=== PATIENT | male | born 1985 | race Caucasian/White ===

== ENCOUNTER → 2019-07-30 | Outpatient (CLI) | payer OTHER ==
--- NOTE | 2019-07-30 11:41 | Diagnostic Imaging Report ---
PROCEDURE: CT sinuses without contrast TECHNIQUE: Multiple contiguous axial images were obtained through the sinuses without the use of intravenous contrast. Coronal and sagittal reformations were then performed. Auto Exposure Controls were utilized during the CT exam to meet ALARA standards for radiation dose reduction. INDICATION: Deviated septum. COMPARISON: None FINDINGS: Moderate leftward angulation of the anterior septum. Small black bullosa in the left middle turbinate. The paranasal sinuses are clear. The ostiomeatal units and frontal recesses are patent. Normal alignment of the temporomandibular joints. The visualized mastoids and middle ears are clear. Skull base is intact. IMPRESSION: 1. Moderate leftward angulation of the anterior nasal septum. 2. No evidence of acute or chronic sinusitis. Dictated by: Dictated on workstation # [id number]
== END ==
LOC: RAD 10:45
PROVIDERS: ATTEND Otolaryngology Otolaryngology/Facial Plastic Surgery
DX: J34.2 Deviated nasal septum (principal); R09.81 Nasal congestion; J34.3 Hypertrophy of nasal turbinates
CPT/HCPCS: 70486

== ENCOUNTER 2019-08-18 06:42 | Outpatient (RCR) | payer OTHER ==
[~2019-08-18] VITALS: Ht 185.4 cm; Wt 111.4 kg
[~2019-08-18 06:42] MED LIST: CETI10TA17 PO; FLUT9.9S NS; MULT-406 PO
== END 2019-08-18 16:10 | disposition home or self-care (01) ==
LOC: PREOP 06:42
PROVIDERS: ATTEND Otolaryngology Otolaryngology/Facial Plastic Surgery
DX: Z01.818 Encounter for other preprocedural examination (principal); Z11.2 Encounter for screening for other bacterial diseases
CPT/HCPCS: 87635

== ENCOUNTER 2019-08-22 07:09 | Day surgery (SDC) | payer OTHER ==
[2019-08-22] VITALS (10 sets, daily range): BP systolic 131–153; BP diastolic 65–96
[~2019-08-22] VITALS: Ht 158.4 cm; Wt 111.4 kg
--- OUTSIDE RECORDS SUMMARY | 2019-08-22 07:16 | XMS REPORT ---
Author Author Roque LANDRUM Organization [facility] [address] Address [address] [place] [address] Care Team Providers Care Chief Security And Safety Officer Name Role Phone JOHN LANDRUM Unavailable PROBLEMS Type Condition ICD9-CM Code [id number] Code Onset Dates Condition S tatus SNOMED Code Problem Primary insomnia F51.01 Active 397 2004 Problem Attention deficit disorder (ADD) without hyperactivity F98.8 Active [id number] ALLERGIES No Known Allergies ENCOUNTERS Encounter Location Date Diagnosis [facility] [address] [place] [id number] 30 Feb, 18 Dental examination Z01.20 ; Caries K02.9 and Oral health maintenance status requiring routine preventive dental care K08.9 [facility] [address] [place] [id number] 12 Jan, 18 Primary insomnia F51.01 ; Encounter for immunization Z23 and Attention deficit disorder (ADD) without hyperactivity F98.8 IMMUNIZATIONS No Known Immunizations SOCIAL HISTORY Never Assessed REASON FOR VISIT TONIA PLAN OF CARE VITAL SIGNS MEDICATIONS Medication Instructions Dosage Frequency Start Date End Date Duration S tatus Sertraline HCl 50 MG Orally Once a day 1 tablet 24h 30 day(s) Not-Taking PreviDent 5000 Booster 1.1% as directed Feb, Active RESULTS No Results PROCEDURES Procedure Date Ordered Result Body Site COMP ORAL EVALUATION - NEW/EST PT Mar 15, 2018 INTRAORL-PERIAPICAL 1 FILM [id number] Mar 15, 2018 Billing Notes on claim Mar 15, 2018 INTRAORL-PERIAPICAL EA ADD FILM Mar 15, 2018 INTRAORL-PERIAPICAL EA ADD FILM Mar 15, 2018 [facility] Employee/Board adjustment Mar 15, 2018 BITEWINGS - FOUR FILMS Mar 15, 2018 INSTRUCTIONS MEDICATIONS ADMINISTERED No Known Medications MEDICAL (GENERAL) HISTORY Type Description Date Medical History depression and anxiety Medical History ADD Surgical History T&A
--- OUTSIDE RECORDS SUMMARY | 2019-08-22 07:16 | XMS REPORT | Clinical Summary ---
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 Medication List Medication Instructions Start Date Stop Date Generic Name NDC Status Provider Patient Instruction ADDERALL 10 MG TABS Take 1 twice daily AMPHETAMINE-DEXTROAMPHETAMINE 27312897587 Active Josep CARLISLE Active Immunizations Vaccine Administration Date Value Standard Braden cription TB-PPD (tuberculin purified protein derivative), intra dermal administration Tubersol Vital Signs Date Name Value Unit Range Description blood pressure, diastolic - 8462-4 82 mm[Hg] BP shannon blood pressure, systolic - 8480-6 124 mm[Hg] BP sys height E&M - 8302-2 72 [in_us] Bdy h eight pulse rate E&M - 8867-4 88 /min H eart rate temperature E&M 97.1 [degF] Body temp erature weight E&M - 3141-9 221 [lb_av] Weigh t Measured Encounters Code Encounter Date Provider Facility CPT-20435 Level 3 Est. 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
--- OUTSIDE RECORDS SUMMARY | 2019-08-22 07:16 | XMS REPORT | Clinical Summary ---
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
--- OUTSIDE RECORDS SUMMARY | 2019-08-22 07:16 | XMS REPORT ---
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 David, med check, flu shot PLAN OF CARE Activity Details Follow Up prn Reason: VITAL SIGNS Height 73 in 2018-01-25 Weight 250.2 lbs 2018-01-25 Temperature 97.4 degrees Fahrenheit 2018-01-25 Heart Rate 74 bpm 2018-01-25 Respiratory Rate 16 2018-01-25 BMI 33.01 kg/m2 2018-01-25 Blood pressure systolic 142 mmHg 2018-01-25 Blood pressure diastolic 98 mmHg 2018-01-25 MEDICATIONS Medication Instructions Dosage Frequency Start Date End Date Duration S tatus Sertraline HCl 50 MG Orally Once a day 1 tablet 24h 30 day(s) Active RESULTS No Results PROCEDURES Procedure Date Ordered Result Body Site FLULAVAL QUAD 0.5ML (6 MO AND UP) 2017Jan 25, 2018 SINGLE IMMUNIZATION ADMIN Jan 25, 2018 INSTRUCTIONS MEDICATIONS ADMINISTERED No Known Medications MEDICAL (GENERAL) HISTORY Type Description Date Medical History depression and anxiety Medical History ADD Surgical History T&A
--- OUTSIDE RECORDS SUMMARY | 2019-08-22 07:16 | XMS REPORT | Clinical Summary ---
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
--- OUTSIDE RECORDS SUMMARY | 2019-08-22 07:16 | XMS REPORT | Clinical Summary ---
Author Author Admin, Roque Coffman Organization 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 [place] Procedures Code Procedure Name Date Entry Date Standard Desc ription CPT-14529 Administration single or combination vac cine inc oral 14:36:57 CDT CPT-88724 TB Tubersol 14:36:57 CDT CPT-14453 Venipuncture Draw Fee 14:31:57 CDT
--- OUTSIDE RECORDS SUMMARY | 2019-08-22 07:16 | XMS REPORT | Clinical Summary ---
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
--- OUTSIDE RECORDS SUMMARY | 2019-08-22 07:16 | XMS REPORT | Clinical Summary ---
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
[2019-08-22] MEDS: LACTATED RINGERS 1,000 ML IV PRN ×2 (07:50→09:30)
[2019-08-22] MEDS ORDERED: PHENYLEPHRINE 0.5% NASAL SPR (NEO-SYNEPHRINE) REG ONE (08:20)
[2019-08-22] MEDS ORDERED: COCAINE HCL 4% 2 ML SYR ONE (08:20)
[2019-08-22] MEDS ORDERED: LIDOCAINE/EPI 1%-1:100,000 (XYLOCAINE) 20ML ONE (08:20)
[2019-08-22] MEDS ORDERED: SEVOFLURANE (ULTANE) 15 ML INHAL SOLN ONE (08:23)
[2019-08-22] MEDS ORDERED: fentaNYL INJECTION 100 MCG/2 ML AMP ONE (08:23)
[2019-08-22] MEDS ORDERED: NEOSTIGMINE 3 MG/3 ML VIAL ONE (08:23)
[2019-08-22] MEDS ORDERED: DEXAMETHASONE 10 MG/ML (DECADRON) 1 ML VIAL ONE (08:23)
[2019-08-22] MEDS ORDERED: LIDOCAINE PF 2% 5 ML (XYLOCAINE) VIAL ONE (08:23)
[2019-08-22] MEDS ORDERED: ROCURONIUM 10 MG/ML 5 ML SYRINGE IV ONE (08:23)
[2019-08-22] MEDS ORDERED: ONDANSETRON 4 MG/2 ML (SDV) Z0FRAN ONE (08:23)
[2019-08-22] MEDS ORDERED: GLYCOPYRROLATE 0.2 MG/ML (ROBINUL) 2 ML VIAL ONE (08:23)
[2019-08-22] MEDS ORDERED: MIDAZOLAM 2 MG/2 ML (VERSED) VIAL ONE (08:23)
[2019-08-22] MEDS ORDERED: proPOfol 200 MG/20 ML (DIPRIVAN) VIAL IV ONE (08:23)
--- NOTE | 2019-08-22 08:51 | Progress Note-Pre Operative ---
Pre-Operative Progress Note H&P Reviewed The H&P was reviewed, patient examined and no changes noted. Date Seen by Provider: August 22, 2019 Time Seen by Provider: 08: Date H&P Reviewed: August 22, 2019 Time H&P Reviewed: : Pre-Operative Diagnosis: Deviated Nasal Septum Bilat HYper of Inf Turbs BRENDON HANDLEY MD August 22, 2019 08:51
--- NOTE | 2019-08-22 09:47 | Progress Note-Post Operative ---
Post-Operative Progess Note Surgeon (s)/Medical Asst (s) Surgeon BRENDON HANDLEY MD Medical Asst n/a Pre-Operative Diagnosis Deviated Nasal Septum Bilat HYper of Inf Turbs Post-Operative Diagnosis same Post-Op Procedure Note Date of Procedure: August 22, 2019 Name of Procedure Performed: Nasal Septoplasty, Bilat Red of Inf Turbs Description & Findings Description and Findings: n/a Anesthesia Type get Estimated Blood Loss minimal Packing none. Specimen(s) collected/removed nasal septum BRENDON HANDLEY MD August 22, 2019 09:47
[2019-08-22] MEDS ORDERED: morphine INJ 10 MG/ML 1ML (SYR OR VIAL) IVP ONE ×2 (10:15→10:30)
[2019-08-22] MEDS ORDERED: ONDANSETRON 4 MG/2 ML (SDV) Z0FRAN IVP PRN ×2 (10:15→10:30)
[2019-08-22] MEDS ORDERED: HYDROmorphone 2 MG/ML VIAL (DILAUDID) IV ONE (10:30)
[2019-08-22] MEDS ORDERED: D5 1/2 NS W/KCL 20 MEQ/L 1,000 ML IV SCH (10:51)
[2019-08-22] MEDS ORDERED: HYDROcodone/APAP 5 MG/325 MG (LORTAB) TAB PO PRN (11:00)
[2019-08-22] MEDS ORDERED: PROMETHAZINE INJ 25 MG/ML (PHENERGAN) AMP IVP PRN (11:00)
[2019-08-22] MEDS ORDERED: ACETAMINOPHEN 325 MG TABLET PO PRN (11:00)
--- NOTE | 2019-08-22 13:42 | Anesthesia-General Post-Op ---
General Patient Condition Mental Status/LOC: Same as Preop Cardiovascular: Satisfactory Nausea/Vomiting: Absent Respiratory: Satisfactory Pain: Controlled Complications: Absent Post Op Complications Complications None Follow Up Care/Instructions Patient Instructions None needed. Anesthesia/Patient Condition Patient Condition Patient was seen after the procedure and he was doing well, no complaints, stable vital signs, no apparent adverse anesthesia problems. . GERALDINE MÉNDEZ DO August 22, 2019 13:41
== END 2019-08-22 11:40 | disposition home or self-care (01) ==
LOC: SDC 07:09
PROVIDERS: ATTEND Otolaryngology Otolaryngology/Facial Plastic Surgery
DX: J34.2 Deviated nasal septum (principal); J34.3 Hypertrophy of nasal turbinates; J34.89 Other specified disorders of nose and nasal sinuses; J32.0 Chronic maxillary sinusitis; R09.81 Nasal congestion; Z90.89 Acquired absence of other organs; Z79.899 Other long term (current) drug therapy
CPT/HCPCS: 87081